=== PATIENT | male | born 1960 | race Caucasian/White ===

== ENCOUNTER 2017-07-02 16:39 | Emergency (ER) | payer OTHER ==
[2017-07-02 17:42] LABS: #Eosinphils 0.2 thou/uL (0.0-0.7); #Lymphocytes 1.5 thou/uL (1.20-3.40); #Monocytes 0.6 thou/uL (0.11-0.59); #Neutrophils 4.5 thou/uL (1.40-6.50); %Basophils 0.5 % (0.0-1.0); %Eosinophils 2.5 % (0.0-10.0); %Monocytes 8.4 % (0.0-10.0); Mean Platelet Volume 6.4 fL (7.4-10.4); Red Blood Cell (RBC) Count 4.56 mill/uL (4.70-6.10); White Blood Cell (WBC) Count 6.7 thou/uL (4.8-10.8)
[2017-07-02 17:48] LABS: ALT (SGPT) 66 U/L (8-55); AST (SGOT) 99 U/L (5-34); Alkaline Phosphatase 100 U/L (40-150); Anion Gap 13 mmol/L (10-20); BUN (Urea Nitrogen) 10 mg/dL (8.4-25.7); Bilirubin, Total 0.8 mg/dL (0.2-1.2); Calc. Creatinine Clearance 0 mL/min (70-130); Calcium 9.9 mg/dL (7.8-10.44); Carbon Dioxide 27 mmol/L (22-29); Chloride 100 mmol/L (98-107); Estimated GFR-MDRD Greater than 90; Globulin 4.1 g/dL (2.4-3.5); Protein, Total 8.5 g/dL (6.0-8.3)
[2017-07-02] MEDS ORDERED: Ketorolac Tromethamine 30 MG/ML VIAL ONE (18:06)
[2017-07-02] MEDS ORDERED: Acetaminophen/Codeine 30-300mg Tablet ONE (18:06)
[2017-07-02] MEDS ORDERED: Dexamethasone 4 mg/ml Vial ONE (18:07)
[2017-07-02 18:27] LABS: Troponin I Less than 0.010 ng/mL (< 0.028)
--- NOTE | 2017-07-02 20:38 | RAD ---
AP VIEW CHEST 07/02/17 HISTORY: Cough. AP view chest is obtained. The lungs are well aerated. No evidence of active intrathoracic disease is seen. No evidence of effusions, pneumonia, or pneumothorax seen. IMPRESSION: Unremarkable AP view chest. POS: [facility]
--- NOTE | 2017-07-18 15:13 | EKG ---
Test Reason : Blood Pressure : / mmHG Vent. Rate : 093 BPM Atrial Rate : 093 BPM P-R Int : 182 ms QRS Dur : 128 ms QT Int : 378 ms P-R-T Axes : 021 -36 011 degrees QTc Int : 469 ms Normal sinus rhythm Left axis deviation Right bundle branch block Inferior infarct , age undetermined Abnormal ECG When compared with ECG of 16-FEB-2017 No changes Confirmed by IRWIN DE LEÓN D.O. ([id number]), magazine editor MONICA WALTON ([id number] on 07/18/2017 3:12:39 PM Referred By: Confirmed By:IRWIN DE LEÓN D.O.
== END 2017-07-02 19:00 | disposition home or self-care (01) ==
LOC: ERS 16:39
DX: J40 Bronchitis, not specified as acute or chronic (principal); J06.9 Acute upper respiratory infection, unspecified; I10 Essential (primary) hypertension; F43.10 Post-traumatic stress disorder, unspecified; Z79.82 Long term (current) use of aspirin; Z79.899 Other long term (current) drug therapy
CPT/HCPCS: 36415; 71010; 80053; 82553; 84484; 85025; 93005; 96372; J1100; J1885

== ENCOUNTER 2017-08-16 13:52 | Emergency (ER) | payer OTHER ==
--- NOTE | 2017-08-16 15:15 | RAD ---
LEFT KNEE 4 VIEW: Date: 08/16/17 HISTORY: Pain. COMPARISON: None. FINDINGS: Numerous dilated veins are seen throughout the superficial soft tissues. No acute fracture or malalig nment. Osteophyte formation of the fibular head is seen, especially on the lateral radiograph. No significant joint effusion. IMPRESSION: Extensive collateral vessels throughout the lower extremities suggest venous insufficiency. No acute fracture or malalignment. POS: [facility]
[2017-08-16] MEDS ORDERED: Ketorolac Tromethamine 30 MG/ML VIAL ONE (16:00)
== END 2017-08-16 16:27 | disposition home or self-care (01) ==
LOC: ERS 13:52
DX: M25.562 Pain in left knee (principal); I10 Essential (primary) hypertension; D64.9 Anemia, unspecified; R73.03 Prediabetes; F43.10 Post-traumatic stress disorder, unspecified; Z79.82 Long term (current) use of aspirin; Z79.891 Long term (current) use of opiate analgesic; Z79.899 Other long term (current) drug therapy
CPT/HCPCS: 96372; J1885

== ENCOUNTER 2018-05-01 15:24 | Emergency (ER) | payer OTHER ==
--- NOTE | 2018-05-01 15:59 | RAD ---
3 VIEWS LEFT FOOT RADIOGRAPH SERIES: Date: 05/01/18 INDICATION: Pain and edema without reported injury. FINDINGS: Lisfranc joint is maintained. No fracture, dislocation, or other significant osseous abnormality. Ent hesophyte formation of the calcaneus is present. There is mild soft tissue prominence of the foot. Co rrelate clinically. IMPRESSION: No acute osseous abnormality of the left foot. POS: [facility]
[2018-05-01] MEDS ORDERED: HYDROcodone/Acetaminophen 5/325 mg Tablet ONE (16:05)
--- NOTE | 2018-05-01 16:54 | ULT ---
LEFT LOWER EXTREMITY VENOUS DUPLEX EXAM: HISTORY: Left leg pain and swelling. TECHNIQUE: Real-time color Doppler evaluation of the left lower extremity was performed from the groin to the nm lf. This includes evaluation of the common femoral, superficial femoral, profunda femoral, saphenous , popliteal, and posterior tibial veins. FINDINGS: This shows a patent deep venous system. There is normal compressibility and augmentation. There is no evidence of DVT. IMPRESSION: No evidence of deep venous thrombosis of the left lower extremity. POS: [facility]
== END 2018-05-01 16:37 | disposition home or self-care (01) ==
LOC: ERS 15:24
DX: E11.40 Type 2 diabetes mellitus with diabetic neuropathy, unspecified (principal); E78.5 Hyperlipidemia, unspecified; D50.9 Iron deficiency anemia, unspecified; F43.10 Post-traumatic stress disorder, unspecified; I49.9 Cardiac arrhythmia, unspecified; Z79.82 Long term (current) use of aspirin; Z79.899 Other long term (current) drug therapy; Z79.84 Long term (current) use of oral hypoglycemic drugs